=== PATIENT | female | born 1980 | race Caucasian/White ===

== ENCOUNTER 2019-02-11 09:15 | Emergency (ER) | payer BC ==
--- NOTE | 2019-02-11 09:24 | EDM.PDOC ---
ED HPI GENERAL MEDICAL PROBLEM - General Chief Complaint: Abdominal Pain Stated Complaint: STOMACH PAIN Time Seen by Provider: 02/11/19 09:23 Source of Information: Reports: Patient History Limitations: Reports: No Limitations - History of Present Illness INITIAL COMMENTS - FREE TEXT/NARRATIVE: Patient is a 38-year-old female complaining of epigastric upper abdominal pain and vomiting started 1 AM this morning is continued since. Denies any hematemesis or any diarrhea. Her abdominal pain feels moderate intensity is worse on the right upper quadrant does radiate to her back. Patient is 14 weeks and had an ultrasound earlier in the month of her which did show she had multiple gallstones. She denies any fever or chills any dysuria or bloody or tarry stools. She has taken nothing for her current symptoms. Not had similar symptoms in the past but has had trouble eating fried or fatty foods in the past. Onset: Today Duration: Chronic Location: Reports: Abdomen Quality: Reports: Ache, Burning. Denies: Stabbing Severity: Moderate Improves with: Reports: None Worsens with: Reports: Eating Associated Symptoms: Reports: No Other Symptoms RUQ Pain Score (Numeric/FACES): 6 - Related Data Allergies Allergy/AdvReac Type Severity Reaction Status Date / Time No Known Allergies Allergy Verified 02/11/19 09:25 Home Meds: Home Meds Levothyroxine 175 mcg PO DAILY 02/11/19 [History] ED ROS GENERAL - Review of Systems Review Of Systems: See Below Constitutional: Denies: Fever, Chills, Malaise Respiratory: Reports: No Symptoms Cardiovascular: Reports: No Symptoms GI/Abdominal: Reports: Abdominal Pain, Nausea, Vomiting. Denies: Diarrhea : Reports: No Symptoms Musculoskeletal: Reports: No Symptoms Skin: Reports: No Symptoms Neurological: Reports: No Symptoms Psychiatric: Reports: No Symptoms ED EXAM, GI/ABD - Physical Exam Exam: See Below Exam Limited By: No Limitations General Appearance: Alert, No Apparent Distress Course - Vital Signs Last Recorded V/S: Last Vital Signs Temp 36.6 C 02/11/19 09:23 Pulse 80 02/11/19 09:23 Resp 18 02/11/19 09:23 BP Pulse Ox 97 02/11/19 09:23 - Orders/Labs/Meds Orders: Active Orders 24 hr Category Date Time Status Sodium Chloride 0.9% [Saline Flush] Med 02/11/19 09:40 Active 10 ml FLUSH ASDIRECTED PRN Sodium Chloride 0.9% [Saline Flush] Med 02/11/19 09:40 Active 2.5 ml FLUSH ASDIRECTED PRN Sodium Chloride 0.9% [Saline Flush] Med 02/11/19 09:40 Active 2.5 ml FLUSH ASDIRECTED PRN Saline Lock Insert [OM.PC] Stat Oth 02/11/19 09:40 Ordered Medication Orders Sodium Chloride (Saline Flush) 2.5 ml FLUSH ASDIRECTED PRN PRN Reason: Keep Vein Open Last Admin: 02/11/19 10:01 Dose: 2.5 ml Sodium Chloride (Saline Flush) 10 ml FLUSH ASDIRECTED PRN PRN Reason: Keep Vein Open Last Admin: 02/11/19 10:01 Dose: 10 ml Sodium Chloride (Saline Flush) 2.5 ml FLUSH ASDIRECTED PRN PRN Reason: Keep Vein Open Last Admin: 02/11/19 10:01 Dose: 2.5 ml Labs: Laboratory Tests 02/11/19 02/11/19 02/11/19 Range/Units 09:26 10:03 10:03 WBC 10.10 (4.0-11.0) K/uL RBC 4.35 (4.30-5.90) M/uL Hgb 12.7 (12.0-16.0) g/dL Hct 38.0 (36.0-46.0) % MCV 87.4 (80.0-98.0) fL MCH 29.2 (27.0-32.0) pg MCHC 33.4 (31.0-37.0) g/dL RDW Std Deviation 47.7 (28.0-62.0) fl RDW Coeff of Tray 15 (11.0-15.0) % Plt Count 279 (150-400) K/uL MPV 10.20 (7.40-12.00) fL Neut % (Auto) 73.8 (48.0-80.0) % Lymph % (Auto) 20.7 (16.0-40.0) % [place] % (Auto) 4.3 (0.0-15.0) % Eos % (Auto) 0.9 (0.0-7.0) % Baso % (Auto) 0.3 (0.0-1.5) % Neut # (Auto) 7.5 H (1.4-5.7) K/uL Lymph # (Auto) 2.1 (0.6-2.4) K/uL [place] # (Auto) 0.4 (0.0-0.8) K/uL Eos # (Auto) 0.1 (0.0-0.7) K/uL Baso # (Auto) 0.0 (0.0-0.1) K/uL Nucleated RBC % 0.0 /100WBC Nucleated RBCs # 0 K/uL Sodium 136 (136-145) mmol/L Potassium 3.6 (3.5-5.1) mmol/L Chloride 105 (98-107) mmol/L Carbon Dioxide 20.2 L (21.0-32.0) mmol/L BUN 6 L (7.0-18.0) mg/dL Creatinine 0.6 (0.6-1.0) mg/dL Est Cr Clr Drug Dosing 100.55 mL/min Estimated GFR (MDRD) > 60.0 ml/min Glucose 107 H (74-106) mg/dL Calcium 8.2 L (8.5-10.1) mg/dL Total Bilirubin 0.2 (0.2-1.0) mg/dL AST 17 (15-37) IU/L ALT 30 (14-63) IU/L Alkaline Phosphatase 52 (46-116) U/L Total Protein 6.6 (6.4-8.2) g/dL Albumin 2.8 L (3.4-5.0) g/dL Globulin 3.8 (2.6-4.0) g/dL Albumin/Globulin Ratio 0.7 L (0.9-1.6) Lipase 101 (73-393) U/L Urine Color YELLOW Urine Appearance CLEAR Urine pH 6.0 (5.0-8.0) Ur Specific [place] 1.025 (1.001-1.035) Urine Protein NEGATIVE (NEGATIVE) mg/dL Urine Glucose (UA) NEGATIVE (NEGATIVE) mg/dL Urine Ketones NEGATIVE (NEGATIVE) mg/dL Urine Occult Blood MODERATE H (NEGATIVE) Urine Nitrite NEGATIVE (NEGATIVE) Urine Bilirubin NEGATIVE (NEGATIVE) Urine Urobilinogen 0.2 (<2.0) EU/dL Ur Leukocyte Esterase NEGATIVE (NEGATIVE) Urine RBC 1-2 (0-2/HPF) Urine WBC 0-1 (0-5/HPF) Ur Epithelial Cells FEW (NONE-FEW) Urine Bacteria RARE (NEGATIVE) Meds: Medications Generic Name Dose Route Start Last Admin Trade Name Freq PRN Reason Stop Dose Admin Sodium Chloride 2.5 ml 02/11/19 09:40 02/11/19 10:01 Saline Flush FLUSH 2.5 ml ASDIRECTED PRN Administration Keep Vein Open Sodium Chloride 10 ml 02/11/19 09:40 02/11/19 10:01 Saline Flush FLUSH 10 ml ASDIRECTED PRN Administration Keep Vein Open Sodium Chloride 2.5 ml 02/11/19 09:40 02/11/19 10:01 Saline Flush FLUSH 2.5 ml ASDIRECTED PRN Administration Keep Vein Open Discontinued Medications Generic Name Dose Route Start Last Admin Trade Name Freq PRN Reason Stop Dose Admin Sodium Chloride 1,000 mls @ 999 mls/hr 02/11/19 09:40 02/11/19 10:01 Normal Saline IV 02/11/19 10:40 999 mls/hr BOLUS ONE Administration Ondansetron HCl 4 mg 02/11/19 09:40 02/11/19 10:01 Zofran IVPUSH 02/11/19 09:41 4 mg ONETIME ONE Administration - Radiology Interpretation Free Text/Narrative:: Patient is feeling better at this time. Lab work is unremarkable. I have informed her this most likely is gallstone disease and she needs to follow-up with a surgeon for possible ERCP or cholecystectomy if symptoms continue or worsen. She also has given dietary recommendations of low-fat diet with small meals only. Departure - Departure Time of Disposition: 10:53 Disposition: Home, Self-Care 01 Condition: Good Clinical Impression: Cholelithiasis complicating in first trimester, antepartum - Discharge Information Instructions: Cholelithiasis Referrals: Pily May MD [Primary Care Provider] - Forms: ED Department Discharge Additional Instructions: Follow-up with surgeon for possible ERCP or cholecystectomy if symptoms continue return to ER anytime worse. Fat diet with small meals only. [place] if needed for pain. Care Plan Goals: The following information is given to patients seen in the emergency department who are being discharged to home. This information is to outline your options for follow-up care. We provide all patients seen in our emergency department with a follow-up referral. The need for follow-up, as well as the timing and circumstances, are variable depending upon the specifics of your emergency department visit. If you don't have a primary care physician on staff, we will provide you with a referral. We always advise you to contact your personal physician following an emergency department visit to inform them of the circumstance of the visit and for follow-up with them and/or the need for any referrals to a consulting specialist. The emergency department will also refer you to a specialist when appropriate. This referral assures that you have the opportunity for follow-up care with a specialist. All of these measure are taken in an effort to provide you with optimal care, which includes your follow-up. Under all circumstances we always encourage you to contact your private physician who remains a resource for coordinating your care. When calling for follow-up care, please make the office aware that this follow-up is from your recent emergency room visit. If for any reason you are refused follow-up, please contact the [facility] Emergency Department at and asked to speak to the emergency department charge nurse. Sepsis Event Note - Focused Exam Vital Signs: Vital Signs Temp Pulse Resp Pulse Ox 02/11/19 09:23 36.6 C 80 18 97 Date Exam was Performed: 02/11/19 Time Exam was Performed: 10:52 - My Orders Last 24 Hours: My Active Orders 02/11/19 09:40 Sodium Chloride 0.9% [Saline Flush] 10 ml FLUSH ASDIRECTED PRN Sodium Chloride 0.9% [Saline Flush] 2.5 ml FLUSH ASDIRECTED PRN Sodium Chloride 0.9% [Saline Flush] 2.5 ml FLUSH ASDIRECTED PRN Saline Lock Insert [OM.PC] Stat - Assessment/Plan Last 24 Hours: My Active Orders 02/11/19 09:40 Sodium Chloride 0.9% [Saline Flush] 10 ml FLUSH ASDIRECTED PRN Sodium Chloride 0.9% [Saline Flush] 2.5 ml FLUSH ASDIRECTED PRN Sodium Chloride 0.9% [Saline Flush] 2.5 ml FLUSH ASDIRECTED PRN Saline Lock Insert [OM.PC] Stat
[2019-02-11] MEDS ORDERED: Sodium Chloride 0.9% 1,000 ML IV ONE (09:40)
[2019-02-11] MEDS ORDERED: Ondansetron 4 MG/2 ML SDV IVPUSH ONE (09:40)
[2019-02-11] MEDS ORDERED: Sodium Chloride 0.9% 10 ML Syringe FLUSH PRN (09:40)
[2019-02-11] MEDS ORDERED: Sodium Chloride 0.9% 2.5 ML Syringe FLUSH PRN ×2 (09:40)
[2019-02-11 10:31] LABS: BLOOD UREA NITROGEN,BUN 6 mg/dL (7.0-18.0); CARBON DIOXIDE,CO2 20.2 mmol/L (21.0-32.0); CHLORIDE,CL 105 mmol/L (98-107); GLUCOSE RANDOM 107 mg/dL (74-106); LIPASE 101 U/L (73-393); POTASSIUM,K 3.6 mmol/L (3.5-5.1); SODIUM,NA 136 mmol/L (136-145)
== END 2019-02-11 11:08 | disposition home or self-care (01) ==
LOC: MW.ED 09:15
DX: O99.612 Diseases of the digestive system complicating pregnancy, second trimester (principal); K80.20 Calculus of gallbladder without cholecystitis without obstruction; Z3A.14 14 weeks gestation of pregnancy
CPT/HCPCS: 36415; 80053; 81001; 83690; 85025; 96361; 96374; 99284; J2405; J7030; 99283

== ENCOUNTER 2019-02-23 10:52 | Emergency (ER) | payer OTHER ==
[2019-02-23] MEDS ORDERED: Ondansetron 4 MG Tab.DIS PO ONE (11:54)
[2019-02-23] MEDS ORDERED: Acetaminophen 325 MG Tab PO ONE (11:54)
[2019-02-23 12:22] LABS: BLOOD UREA NITROGEN,BUN 5 mg/dL (7.0-18.0); CARBON DIOXIDE,CO2 24.1 mmol/L (21.0-32.0); CHLORIDE,CL 102 mmol/L (98-107); GLUCOSE RANDOM 107 mg/dL (74-106); LIPASE 84 U/L (73-393); POTASSIUM,K 3.5 mmol/L (3.5-5.1); SODIUM,NA 136 mmol/L (136-145)
--- NOTE | 2019-02-23 13:54 | MR ---
INDICATION: ELEVATED LFTS , 16 WEEKS KNOWN CHOLELITHIASISPATIENT IS IN THE ER Indication: Elevated liver transaminases. Technique: Three plane localizer, coronal T2 weighted, axial SSFP, high-resolution, heavily T2 weighted 2D/3D MRCP images, axial T2 weighted with fat suppression, axial T1 weighted in and out of phase, axial diffusion-weighted imaging with ADC map. No intravenous gadolinium administered. Comparison: Ultrasound of the abdomen limited 02/22/2019. Findings: There is a filling defect in the common bile duct, compatible with choledocholithiasis. This is seen well on image 65 of series 401. The common bile duct measures up to 6 millimeters. The filling defect measures 4 mm in craniocaudad dimension. Cholelithiasis. No inflammatory changes. Non cirrhotic liver morphology. No loss of signal intensity in the liver on opposed phase imaging to indicate hepatic steatosis. The included segments of the pancreas, adrenal glands, and spleen are normal. No pleural or pericardial effusion. No abdominal lymphadenopathy. Marrow signal intensity within the included axial skeleton is normal. Included loops of small bowel and colon are normal. Partially visualized gravid uterus. This is not included on the [id number] entirely, and is not intended for assessment of anatomy. The placenta appears anterior. Impression: 1. Choledocholithiasis. This is well demonstrated on series 401, image 65. 2. Cholelithiasis, without associated inflammatory changes. 3. GI consultation is suggested for these findings. 4. Report called to the emergency room provider, 02/23/2019, 1349 hours. Dictated by Sinan Pascal MD @ 02/23/2019 1:52:22 PM Dictated by: Sinan Pascal MD @ 02/23/2019 13:52:33 (Electronically Signed)
--- NOTE | 2019-02-23 15:00 | EDM.PDOC ---
ED [facility] GENERAL MEDICAL PROBLEM - General Chief Complaint: Abdominal Pain Stated Complaint: STOMACH PAIN Time Seen by Provider: 02/23/19 12:00 Source of Information: Reports: Patient, Provider History Limitations: Reports: No Limitations - History of Present Illness INITIAL COMMENTS - FREE TEXT/NARRATIVE: Patient is a 30-year-old female that is approximately 16 weeks presenting with a chief complaint of abdominal pain and vomiting. The pain is located in the right upper quadrant and suddenly worsened last night. Pain has no cholelithiasis and was evaluated by Dr. Wilcox yesterday was found to have transaminitis with a normal bilirubin as well as a normal ultrasound. However overnight her pain worsened and she vomited several times. Patient denies any fevers, chills, difficulty breathing. Patient denies any itching or skin changes. In addition to that documented in the HPI above, the additional ROS was obtained : Constitutional: Denies fevers or chills Eyes: Denies vision changes ENMT: Denies sore throat CV: Denies chest pain Resp: Denies SOB GI: Per HPI : Denies painful urination MSK: Denies recent trauma Skin: Denies new rashes Neuro: Denies new numbness or tingling or weakness Endocrine: Denies unexpected weight loss Heme: Denies bleeding disorders I have reviewed the triage vital signs Const: Well nourished, well developed, appears stated age Eyes: PERRL, no conjunctival injection HENT: NCAT, Neck supple without meningismus CV: RRR, Warm, well-perfused extremities RESP: CTAB, Unlabored respiratory effort GI: Tender palpation of the right upper quadrant with positive Qureshi sign. Soft abdomen, non-distended, no masses MSK: No gross deformities appreciated Skin: Warm, dry. 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 Sensation and motor function of extremities grossly intact. Psych: Appropriate mood and affect Assessment and plan Patient is a 38-year-old female that is 16-week failed to have a common bile duct stone on MRCP. Patient does not have evidence of cholecystitis but her liver enzymes are up-trending. Patient will require transfer for GI evaluation and ERCP. Since these services are not available at this hospital, transfer will be arranged to [facility]. 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: Musculoskeletal History: Reports: None Neurological History: Reports: None Psychiatric History: Reports: None Endocrine/Metabolic History: Reports: Diabetes, Gestational, Hypothyroidism Hematologic History: Reports: None Immunologic History: Reports: None Oncologic (Cancer) History: Reports: None Dermatologic History: Reports: None - Infectious Disease History Infectious Disease History: Reports: Chicken Pox - Past Surgical History Head Surgeries/Procedures: Reports: None HEENT Surgical History: Reports: None Cardiovascular Surgical History: Reports: None Respiratory Surgical History: Reports: None GI Surgical History: Reports: None Female Surgical History: Reports: None Endocrine Surgical History: Reports: None Neurological Surgical History: Reports: None Musculoskeletal Surgical History: Reports: None Oncologic Surgical History: Reports: None Dermatological Surgical History: Reports: None Social & Family History - Family History Family Medical History: Noncontributory - Tobacco Use Smoking Status *Q: Never Smoker - Caffeine Use Caffeine Use: Reports: None - Recreational Drug Use Recreational Drug Use: No ED ROS GENERAL - Review of Systems Review Of Systems: See Below ED EXAM, GI/ABD - Physical Exam Exam: See Below Course - Vital Signs Last Recorded V/S: Last Vital Signs Temp 36.6 C 02/23/19 11:19 Pulse 72 02/23/19 13:18 Resp 18 02/23/19 12:16 BP 115/92 H 02/23/19 13:18 Pulse Ox 98 02/23/19 13:18 - Orders/Labs/Meds Labs: Laboratory Tests 02/23/19 02/23/19 Range/Units 11:38 11:38 WBC 8.72 (4.0-11.0) K/uL RBC 4.39 (4.30-5.90) M/uL Hgb 12.9 (12.0-16.0) g/dL Hct 39.0 (36.0-46.0) % MCV 88.8 (80.0-98.0) fL MCH 29.4 (27.0-32.0) pg MCHC 33.1 (31.0-37.0) g/dL RDW Std Deviation 49.4 (28.0-62.0) fl RDW Coeff of Tray 15 (11.0-15.0) % Plt Count 273 (150-400) K/uL MPV 10.70 (7.40-12.00) fL Neut % (Auto) 73.2 (48.0-80.0) % Lymph % (Auto) 20.9 (16.0-40.0) % [place] % (Auto) 4.2 (0.0-15.0) % Eos % (Auto) 1.4 (0.0-7.0) % Baso % (Auto) 0.3 (0.0-1.5) % Neut # (Auto) 6.4 H (1.4-5.7) K/uL Lymph # (Auto) 1.8 (0.6-2.4) K/uL [place] # (Auto) 0.4 (0.0-0.8) K/uL Eos # (Auto) 0.1 (0.0-0.7) K/uL Baso # (Auto) 0.0 (0.0-0.1) K/uL Nucleated RBC % 0.0 /100WBC Nucleated RBCs # 0 K/uL Sodium 136 (136-145) mmol/L Potassium 3.5 (3.5-5.1) mmol/L Chloride 102 (98-107) mmol/L Carbon Dioxide 24.1 (21.0-32.0) mmol/L BUN 5 L (7.0-18.0) mg/dL Creatinine 0.6 (0.6-1.0) mg/dL Est Cr Clr Drug Dosing TNP Estimated GFR (MDRD) > 60.0 ml/min Glucose 107 H (74-106) mg/dL Calcium 8.5 (8.5-10.1) mg/dL Total Bilirubin 0.7 (0.2-1.0) mg/dL AST 392 H (15-37) IU/L ALT 609 H (14-63) IU/L Alkaline Phosphatase 196 H (46-116) U/L Total Protein 6.8 (6.4-8.2) g/dL Albumin 2.8 L (3.4-5.0) g/dL Globulin 4.0 (2.6-4.0) g/dL Albumin/Globulin Ratio 0.7 L (0.9-1.6) Lipase 84 (73-393) U/L Meds: Medications Discontinued Medications Generic Name Dose Route Start Last Admin Trade Name Freq PRN Reason Stop Dose Admin Acetaminophen 650 mg 02/23/19 11:54 02/23/19 12:15 Tylenol PO 02/23/19 11:55 650 mg NOW ONE Administration Ondansetron HCl 4 mg 02/23/19 11:54 02/23/19 12:15 Zofran Odt PO 02/23/19 11:55 4 mg ONETIME ONE Administration Departure - Departure Time of Disposition: 15:00 Disposition: DC/Tfer to Other 70 Clinical Impression: Choledocholithiasis - Discharge Information Referrals: Pily May MD [Primary Care Provider] - Sepsis Event Note - Evaluation Sepsis Screening Result: No Definite Risk - Focused Exam Vital Signs: Vital Signs Temp Pulse Resp BP Pulse Ox 02/23/19 13:18 72 115/92 H 98 02/23/19 12:16 78 18 96 02/23/19 11:19 36.6 C 79 20 123/72 95 Date Exam was Performed: 02/23/19 Time Exam was Performed: 14:54
--- NOTE | 2019-02-23 15:33 | PCM.CONS ---
H&P History of Present Illness - General Date of Service: 02/23/19 Admit Problem/Dx: RUQ abdominal pain Source of Information: Patient History Limitations: Reports: No Limitations - History of Present Illness Initial Comments - Free Text/Narative: Patient is a 38 year old female who presents with severe RUQ pain. She is 16 weeks and has know cholelithiasis. She was seen at [place] in the ER for RUQ pain. Labs were normal. Since then she has had ongoing RUQ pain that radiates to her epigastric area. It is made worse with any po intake. She saw me in clinic yesterday. Her physical exam was unremarkable. Her LFTs were all elevated but her bilirubin was normal. Repeat US showed cholelithiasis with no evidence of cholecystitis and her common bile duct was normal size. She was scheduled for an outpatient MRCP. This morning she developed 10/10 pain starting at 1 am. She was advised to go to the ER. 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: Musculoskeletal History: Reports: None Neurological History: Reports: None Psychiatric History: Reports: None Endocrine/Metabolic History: Reports: Diabetes, Gestational, Hypothyroidism Hematologic History: Reports: None Immunologic History: Reports: None Oncologic (Cancer) History: Reports: None Dermatologic History: Reports: None - Infectious Disease History Infectious Disease History: Reports: Chicken Pox - Past Surgical History Head Surgeries/Procedures: Reports: None HEENT Surgical History: Reports: None Cardiovascular Surgical History: Reports: None Respiratory Surgical History: Reports: None GI Surgical History: Reports: None Female Surgical History: Reports: None Endocrine Surgical History: Reports: None Neurological Surgical History: Reports: None Musculoskeletal Surgical History: Reports: None Oncologic Surgical History: Reports: None Dermatological Surgical History: Reports: None Social & Family History - Family History Family Medical History: Noncontributory - Tobacco Use Smoking Status *Q: Never Smoker - Caffeine Use Caffeine Use: Reports: None - Recreational Drug Use Recreational Drug Use: No H&P Review of Systems - Review of Systems: Review Of Systems: Comprehensive ROS is negative, except as noted in HPI. Exam - Exam Exam: See Below - Vital Signs Vital Signs: Last Vital Signs Temp 36.3 C 02/23/19 15:13 Pulse 61 02/23/19 15:13 Resp 16 02/23/19 15:13 BP 107/64 02/23/19 15:13 Pulse Ox 97 02/23/19 15:13 - Exam General: Alert, Oriented, Cooperative, Moderate Distress HEENT: Conjunctiva Clear, Mucosa Moist & Braxton, Posterior Pharynx Clear Neck: Trachea Midline Lungs: Normal Respiratory Effort Cardiovascular: Regular Rate GI/Abdominal Exam: Soft, Non-Tender, No Distention, No Mass Back Exam: Normal Inspection, Full Range of Motion Extremities: Normal Inspection - Patient Data Lab Results Last 24 hrs: Laboratory Results - last 24 hr 02/23/19 02/23/19 Range/Units 11:38 11:38 WBC 8.72 (4.0-11.0) K/uL RBC 4.39 (4.30-5.90) M/uL Hgb 12.9 (12.0-16.0) g/dL Hct 39.0 (36.0-46.0) % MCV 88.8 (80.0-98.0) fL MCH 29.4 (27.0-32.0) pg MCHC 33.1 (31.0-37.0) g/dL RDW Std Deviation 49.4 (28.0-62.0) fl RDW Coeff of Tray 15 (11.0-15.0) % Plt Count 273 (150-400) K/uL MPV 10.70 (7.40-12.00) fL Neut % (Auto) 73.2 (48.0-80.0) % Lymph % (Auto) 20.9 (16.0-40.0) % [place] % (Auto) 4.2 (0.0-15.0) % Eos % (Auto) 1.4 (0.0-7.0) % Baso % (Auto) 0.3 (0.0-1.5) % Neut # (Auto) 6.4 H (1.4-5.7) K/uL Lymph # (Auto) 1.8 (0.6-2.4) K/uL [place] # (Auto) 0.4 (0.0-0.8) K/uL Eos # (Auto) 0.1 (0.0-0.7) K/uL Baso # (Auto) 0.0 (0.0-0.1) K/uL Nucleated RBC % 0.0 /100WBC Nucleated RBCs # 0 K/uL Sodium 136 (136-145) mmol/L Potassium 3.5 (3.5-5.1) mmol/L Chloride 102 (98-107) mmol/L Carbon Dioxide 24.1 (21.0-32.0) mmol/L BUN 5 L (7.0-18.0) mg/dL Creatinine 0.6 (0.6-1.0) mg/dL Est Cr Clr Drug Dosing TNP Estimated GFR (MDRD) > 60.0 ml/min Glucose 107 H (74-106) mg/dL Calcium 8.5 (8.5-10.1) mg/dL Total Bilirubin 0.7 (0.2-1.0) mg/dL AST 392 H (15-37) IU/L ALT 609 H (14-63) IU/L Alkaline Phosphatase 196 H (46-116) U/L Total Protein 6.8 (6.4-8.2) g/dL Albumin 2.8 L (3.4-5.0) g/dL Globulin 4.0 (2.6-4.0) g/dL Albumin/Globulin Ratio 0.7 L (0.9-1.6) Lipase 84 (73-393) U/L Result Diagrams: 02/23/19 11:38 02/23/19 11:38 Sepsis Event Note - Evaluation Sepsis Screening Result: No Definite Risk - Focused Exam Vital Signs: Vital Signs Temp Pulse Resp BP Pulse Ox 02/23/19 15:13 36.3 C 61 16 107/64 97 02/23/19 13:18 72 115/92 H 98 02/23/19 12:16 78 18 96 02/23/19 11:19 36.6 C 79 20 123/72 95 Date Exam was Performed: 02/23/19 Time Exam was Performed: 16:00 Consult PN Assessment/Plan Procedures: Procedures ASSAY OF FREE THYROXINE (01/11/19) ASSAY OF LIPASE (02/11/19) ASSAY THYROID STIM HORMONE (01/11/19) COMPLETE CBC W/AUTO DIFF WBC (02/11/19) COMPREHEN METABOLIC PANEL (02/11/19) EMERGENCY DEPT VISIT (02/11/19) GLUCOSE TEST (01/11/19) HYDRATE IV INFUSION ADD-ON (02/11/19) ROUTINE VENIPUNCTURE (02/11/19) THER/PROPH/DIAG INJ IV PUSH (02/11/19) URINALYSIS AUTO W/SCOPE (02/11/19) URINE CULTURE/COLONY COUNT (01/07/19) (1) Choledocholithiasis SNOMED Code(s): 867782366 Code(s): K80.50 - CALCULUS OF BILE DUCT W/O CHOLANGITIS OR CHOLECYST W/O OBST Current Visit: Yes Problem List Initiated/Reviewed/Updated: Yes Plan: Labs were rechecked today. Her LFTs were all higher and although her bilirubin was within normal limits it was elevated from what it was yesterday. An abdominal MR without contrast was performed that showed choledocholithiasis. She will be transferred to a facility with greater resources given that she is and has this new finding. The ER doctor talked to Jacques who recommended transfer to [place].
[2019-02-23] MEDS ORDERED: Sodium Chloride 0.9% 1,000 ML IV SCH (16:45)
== END 2019-02-23 17:40 | disposition other institution (70) ==
LOC: MW.ED 10:52
DX: O99.612 Diseases of the digestive system complicating pregnancy, second trimester (principal); K80.50 Calculus of bile duct without cholangitis or cholecystitis without obstruction; O09.522 Supervision of elderly multigravida, second trimester; O99.282 Endocrine, nutritional and metabolic diseases complicating pregnancy, second trimester; E03.9 Hypothyroidism, unspecified; Z3A.16 16 weeks gestation of pregnancy
CPT/HCPCS: 36415; 74181; 80053; 83690; 85025; 96360; 99285; A9270; J7030; 99283

== ENCOUNTER 2019-07-26 05:06 | Inpatient (IN) | payer MEDICAID ==
[2019-07-26] MEDS ORDERED: Nalbuphine 10 MG/1 ML Vial IVPUSH PRN (05:33)
[2019-07-26] MEDS ORDERED: Water For Irrigation,Sterile 1,000 ML Container IRR PRN (05:33)
[2019-07-26] MEDS ORDERED: Butorphanol 1 MG/ML SDV IVPUSH PRN (05:33)
[2019-07-26] MEDS ORDERED: Misoprostol 200 MCG Tab PO PRN (05:33)
[2019-07-26] MEDS ORDERED: Sodium Chloride 0.9% 10 ML SDV IV PRN (05:33)
[2019-07-26] MEDS ORDERED: Sodium Chloride 0.9% 10 ML Syringe FLUSH PRN (05:33)
[2019-07-26] MEDS ORDERED: Carboprost Tromethamine 250 MCG/1 ML Amp IM PRN (05:33)
[2019-07-26] MEDS ORDERED: Lidocaine 1% 50 ML MDV INJECT PRN (05:33)
[2019-07-26] MEDS ORDERED: Methylergonovine 0.2 MG/1 ML Amp IM PRN (05:33)
[2019-07-26] MEDS ORDERED: Tranexamic Acid 1,000 MG in Sodium Chloride 0.9% 100 ML IV PRN ×2 (05:33→12:45)
[2019-07-26] MEDS ORDERED: Sodium Chloride 0.9% 2.5 ML Syringe FLUSH PRN (05:33)
[2019-07-26] MEDS ORDERED: Oxytocin/0.9 % Sodium Chloride 30 UNIT/500 ML BAG IV SCH ×2 (05:45→06:00)
[2019-07-26] MEDS: Lactated Ringers 1,000 ML IV SCH ×2 (05:52→10:45)
[2019-07-26] MEDS ORDERED: Terbutaline 1 MG/ML SDV SUBCUT PRN (05:53)
[2019-07-26] MEDS ORDERED: Lanolin 100% Cream 7 GM Tube TOP PRN (12:45)
[2019-07-26] MEDS ORDERED: Bisacodyl 10 MG Supp RECTAL PRN (12:45)
[2019-07-26] MEDS ORDERED: Acetaminophen 500 MG Tab PO PRN ×2 (12:45)
[2019-07-26] MEDS ORDERED: oxyCODONE 5 MG Tab PO PRN (12:45)
[2019-07-26] MEDS ORDERED: Docusate Sodium 100 MG Cap PO PRN (12:45)
[2019-07-26] MEDS ORDERED: Ibuprofen 800 MG Tab PO PRN (12:45)
[2019-07-26] MEDS ORDERED: Benzocaine/Menthol 20%-0.5% Spray 78 GM Cannister TOP PRN (12:45)
[2019-07-26] MEDS ORDERED: Witch Hazel Medicated Pads 40/Jar TOP PRN (12:45)
[2019-07-26] MEDS ORDERED: Ibuprofen 400 MG Tab PO PRN (12:45)
--- NOTE | 2019-07-26 12:45 | PCM.DEL ---
L & D Note - General Info Date of Service: 07/26/19 Mother's Due Date: 08/13/19 - Delivery Note Labor: Induced by Oxytocin Delivery Outcome: Livebirth Infant Delivery Method: Spontaneous Vaginal Delivery-Single Presentation: Left Occiput Anterior (CALEB) Nuchal Cord: None Prep: Other Anesthesia Type: None Amniotic Fluid Description: Clear Episiotomy Type: None Laceration: None Placenta: Intact, Spontaneous Cord: 2 Vessels Estimated Blood Loss: 200 Resuscitation Needed: No : Suctioned Score 1 min: 8 Score 5 min: 9 Delivery Comments (Free Text/Narrative):: Liveborn male 8/9 weigth 2910 grams, placenta spontaneous, Schultze, intact with 2 vessels, perineum intact. - General Info Date of Service: 07/26/19 - Patient Data Weight - Most Recent: 92.079 kg Lab Results Last 24 Hours: Laboratory Results - last 24 hr 07/26/19 07/26/19 07/26/19 Range/Units 05:20 05:20 06:42 WBC 11.50 H (4.0-11.0) K/uL RBC 4.24 L (4.30-5.90) M/uL Hgb 12.0 (12.0-16.0) g/dL Hct 37.1 (36.0-46.0) % MCV 87.5 (80.0-98.0) fL MCH 28.3 (27.0-32.0) pg MCHC 32.3 (31.0-37.0) g/dL RDW Std Deviation 47.7 (28.0-62.0) fl RDW Coeff of Tray 15 (11.0-15.0) % Plt Count 273 (150-400) K/uL MPV 12.10 H (7.40-12.00) fL Nucleated RBC % 0.0 /100WBC Nucleated RBCs # 0 K/uL POC Glucose 96 (60-110) mg/dL Blood Type O POSITIVE Antibody Screen NEGATIVE 07/26/19 07/26/19 Range/Units 08:54 11:35 WBC (4.0-11.0) K/uL RBC (4.30-5.90) M/uL Hgb (12.0-16.0) g/dL Hct (36.0-46.0) % MCV (80.0-98.0) fL MCH (27.0-32.0) pg MCHC (31.0-37.0) g/dL RDW Std Deviation (28.0-62.0) fl RDW Coeff of Tray (11.0-15.0) % Plt Count (150-400) K/uL MPV (7.40-12.00) fL Nucleated RBC % /100WBC Nucleated RBCs # K/uL POC Glucose 90 92 (60-110) mg/dL Blood Type Antibody Screen Med Orders - Current: Current Medications Butorphanol Tartrate (Stadol) 1 mg IVPUSH Q1H PRN PRN Reason: Pain Last Admin: 07/26/19 11:26 Dose: 1 mg Carboprost Tromethamine (Hemabate Ds) 250 mcg IM ASDIRECTED PRN PRN Reason: Post Hemorrhage Lactated Ringer's (Ringers, Lactated) 1,000 mls @ 150 mls/hr IV ASDIRECTED SAIRA Last Admin: 07/26/19 10:45 Dose: 500 mls/hr Oxytocin/Sodium Chloride (Oxytocin 30 Unit/500 Ml-Ns) 30 unit in 500 mls @ 500 mls/hr IV TITRATE SAIRA Last Admin: 07/26/19 12:05 Dose: 500 mls/hr Tranexamic Acid 1,000 mg/ (Sodium Chloride) 110 mls @ 660 mls/hr IV ONETIME PRN PRN Reason: Bleeding Oxytocin/Sodium Chloride (Oxytocin 30 Unit/500 Ml-Ns) 30 unit in 500 mls @ 2 mls/hr IV TITRATE [facility]; Protocol Last Titration: 07/26/19 10:22 Dose: 0 munits/min, 0 mls/hr Lidocaine HCl (Xylocaine 1%) 50 ml INJECT ONETIME PRN PRN Reason: Laceration repair Methylergonovine Maleate (Methergine) 0.2 mg IM ASDIRECTED PRN PRN Reason: Post Hemorrhage Misoprostol (Cytotec) 200 mcg PO ONETIME PRN PRN Reason: Post Hemorrhage Nalbuphine HCl (Nubain) 10 mg IVPUSH Q1H PRN PRN Reason: Pain (severe 7-10) Sodium Chloride (Saline Flush) 10 ml FLUSH ASDIRECTED PRN PRN Reason: Keep Vein Open Sodium Chloride (Saline Flush) 2.5 ml FLUSH ASDIRECTED PRN PRN Reason: Keep Vein Open Sodium Chloride (Normal Saline) 10 ml IV ASDIRECTED PRN PRN Reason: IV Use Sterile Water (Sterile Water For Irrigation) 1,000 ml IRR ASDIRECTED PRN PRN Reason: delivery Terbutaline Sulfate (Brethine) 0.25 mg SUBCUT ASDIRECTED PRN PRN Reason: Tacysystole - Problem List & Annotations (1) Gestational diabetes mellitus (GDM) requiring insulin SNOMED Code(s): 18970997, 836939095 Code(s): O24.414 - GESTATIONAL DIABETES IN , INSULIN CONTROLLED Status: Acute Current Visit: Yes (2) Gestational hypertension SNOMED Code(s): 616656004 Code(s): O13.9 - GESTATIONAL HTN W/O SIGNIFICANT PROTEINURIA, UNSP TRIMESTER Status: Acute Current Visit: Yes (3) Single umbilical artery SNOMED Code(s): 998612719 Code(s): Q27.0 - CONGENITAL ABSENCE AND HYPOPLASIA OF UMBILICAL ARTERY Status: Acute Current Visit: Yes - Problem List Review Problem List Initiated/Reviewed/Updated: Yes - My Orders Last 24 Hours: My Active Orders 07/26/19 05:20 RPR (SYPHILIS SERO) W/ RFLX [REF] Routine 07/26/19 05:33 Patient Status [ADT] Routine Heart Tones [RC] CONTINUOUS Non Stress Test [RC] PER UNIT ROUTINE May Shower [RC] ASDIRECTED Notify Provider [RC] PRN Up ad Lori [RC] ASDIRECTED Vaginal Exam [RC] PRN Vital Signs [RC] PER UNIT ROUTINE Butorphanol [Stadol] 1 mg IVPUSH Q1H PRN Carboprost Tromethamine [Hemabate DS] 250 mcg IM ASDIRECTED PRN Lidocaine 1% [Xylocaine 1%] 50 ml INJECT ONETIME PRN Methylergonovine [Methergine] 0.2 mg IM ASDIRECTED PRN Nalbuphine [Nubain] 10 mg IVPUSH Q1H PRN Sodium Chloride 0.9% [Normal Saline] 10 ml IV ASDIRECTED PRN Sodium Chloride 0.9% [Saline Flush] 10 ml FLUSH ASDIRECTED PRN Sodium Chloride 0.9% [Saline Flush] 2.5 ml FLUSH ASDIRECTED PRN Tranexamic Acid [Cyklokapron] 1,000 mg Sodium Chloride 0.9% [Normal Saline] 100 ml IV ONETIME Water For Irrigation,Sterile [Sterile Water for Irrigation] 1,000 ml IRR ASDIRECTED PRN miSOPROStoL [Cytotec] 200 mcg PO ONETIME PRN Scalp Electrode [WOMSER] Per Unit Routine Peripheral IV Insertion Adult [OM.PC] Routine Resuscitation Status Routine 07/26/19 05:45 Lactated Ringers [Ringers, Lactated] 1,000 ml IV ASDIRECTED Oxytocin/0.9 % Sodium Chloride [Oxytocin 30 Unit/500 ML-NS] 30 unit in 500 ml IV TITRATE 07/26/19 05:53 Bedrest Bathroom Privileges [RC] ASDIRECTED Communication Order [RC] ASDIRECTED Communication Order [RC] ASDIRECTED Notify Provider [RC] PRN Terbutaline [Brethine] 0.25 mg SUBCUT ASDIRECTED PRN 07/26/19 06:00 Oxytocin/0.9 % Sodium Chloride [Oxytocin 30 Unit/500 ML-NS] 30 unit in 500 ml IV TITRATE 07/26/19 Breakfast Clear Liquid Diet [DIET]
--- NOTE | 2019-07-26 13:40 | OR ---
SURGEON: Zenaida Mccall M.D. DATE OF PROCEDURE: 07/26/2019 PREOPERATIVE DIAGNOSES: A 38-3/7 weeks' intrauterine , gestational diabetes type A2, gestational hypertension, single umbilical artery, polyhydramnios. DIAGNOSES: A 38-3/7 weeks' intrauterine , gestational diabetes type A2, gestational hypertension, single umbilical artery, polyhydramnios. PROCEDURE: Pitocin induction of labor, term spontaneous vaginal delivery. PRIMARY SURGEON: Zenaida Mccall MD ANESTHESIA: None. ESTIMATED BLOOD LOSS: 200 mL. FINDINGS: Liveborn male, score of 8 and 9, weighing 2910 g. Placenta spontaneous, Schultze intact with two-vessel cord. Perineum intact. COMPLICATIONS: None known. DISPOSITION: Mother and baby are in Recovery in good condition. BRIEF HISTORY: This is a 38-year-old female who presents for induction of labor. She has gestational diabetes. She has been using NPH in the evenings, but has persistently elevated fastings. Additionally, at her most recent visit, she had elevated blood pressures. She has a single umbilical artery with no other anomalies identified. However, polyhydramnios was present during the . She has been followed with serial biophysical profiles. Due to the gestational diabetes and elevated blood pressure, decision was made to proceed with induction of labor at 38-3/7 weeks' gestation. HOSPITAL COURSE: The patient was admitted. She had category 1 heart tones. She had normal blood pressures during the admission. She had normal blood sugars during the admission. She was started on Pitocin, and when she was 3 cm dilated, had artificial rupture of membranes performed. Pitocin was at a max of 8 milliunits/minute and it was decreased due to variable decelerations. Over the following 2 hours, the patient progressed to complete. DESCRIPTION OF PROCEDURE: With the patient in the dorsal lithotomy position, the anterior cervix was reduced as the patient was feeling extreme urge to push, and she pushed over 1 contraction to a 5+ station, at which time, the head was delivered spontaneously and atraumatically over the perineum with support with subsequent delivery of the infant's shoulders and body without any difficulty. The was bulb suctioned by nose and mouth. The was handed to the mother in the presence of the nurse attending delivery. The was a liveborn male, score of 8 and 9, weighing 2910 g. After the cord had ceased to pulsate, it was doubly clamped and cut. Cord blood was collected for cord ABGs as well as routine cord blood sampling. Pitocin was initiated after delivery of the infant to assist with delivery of the placenta, which was delivered spontaneously, Schultze intact with two vessels. Upon inspection of the pelvis and perineum, there were no periurethral, vaginal sidewall, cervical, rectal, or perineal lacerations. EBL was less than 200 mL. There were no known complications. Mother and baby remained in Recovery in good condition. MATT / RADHA /[id number]
[2019-07-27 06:16] LABS: BLOOD UREA NITROGEN,BUN 14 mg/dL (7.0-18.0); CARBON DIOXIDE,CO2 21.7 mmol/L (21.0-32.0); CHLORIDE,CL 104 mmol/L (98-107); GLUCOSE RANDOM 91 mg/dL (74-106); SODIUM,NA 138 mmol/L (136-145)
--- NOTE | 2019-07-27 10:42 | PCM.PNPP ---
- General Info Date of Service: 07/27/19 Functional Status: Reports: Pain Controlled, Tolerating Diet, Ambulating, Urinating - Review of Systems General: Reports: No Symptoms HEENT: Reports: No Symptoms Pulmonary: Reports: No Symptoms Cardiovascular: Reports: No Symptoms Gastrointestinal: Reports: No Symptoms Genitourinary: Reports: No Symptoms Musculoskeletal: Reports: No Symptoms Skin: Reports: No Symptoms Neurological: Reports: No Symptoms Psychiatric: Reports: No Symptoms - General Info Date of Service: 07/27/19 - Patient Data Vital Signs - Most Recent: Last Vital Signs Temp 36.5 C 07/27/19 09:17 Pulse 71 07/27/19 09:17 Resp 16 07/27/19 09:17 BP 117/74 07/27/19 09:17 Pulse Ox 97 07/27/19 09:17 Weight - Most Recent: 92.079 kg Lab Results - Last 24 Hours: Laboratory Results - last 24 hr 07/26/19 07/26/19 07/27/19 Range/Units 11:35 12:25 05:32 Hgb 10.9 L (12.0-16.0) g/dL Hct 34.3 L (36.0-46.0) % Cord ABG pH 7.242 (7.18-7.38) Cord ABG Base Excess -4 (-10--2) Cord VBG pH 7.361 (7.25-7.45) Cord VBG Base Excess -5 (-10--2) Sodium (136-145) mmol/L Potassium (3.5-5.1) mmol/L Chloride (98-107) mmol/L Carbon Dioxide (21.0-32.0) mmol/L BUN (7.0-18.0) mg/dL Creatinine (0.6-1.0) mg/dL Est Cr Clr Drug Dosing mL/min Estimated GFR (MDRD) ml/min Glucose (74-106) mg/dL POC Glucose 92 (60-110) mg/dL Calcium (8.5-10.1) mg/dL 07/27/19 Range/Units 05:32 Hgb (12.0-16.0) g/dL Hct (36.0-46.0) % Cord ABG pH (7.18-7.38) Cord ABG Base Excess (-10--2) Cord VBG pH (7.25-7.45) Cord VBG Base Excess (-10--2) Sodium 138 (136-145) mmol/L Potassium 4.0 (3.5-5.1) mmol/L Chloride 104 (98-107) mmol/L Carbon Dioxide 21.7 (21.0-32.0) mmol/L BUN 14 (7.0-18.0) mg/dL Creatinine 0.8 (0.6-1.0) mg/dL Est Cr Clr Drug Dosing 75.41 mL/min Estimated GFR (MDRD) > 60.0 ml/min Glucose 91 (74-106) mg/dL POC Glucose (60-110) mg/dL Calcium 8.3 L (8.5-10.1) mg/dL Med Orders - Current: Current Medications Acetaminophen (Tylenol Extra Strength) 500 mg PO Q4H PRN PRN Reason: Pain Acetaminophen (Tylenol Extra Strength) 1,000 mg PO Q4H PRN PRN Reason: Pain Last Admin: 07/26/19 22:03 Dose: 1,000 mg Benzocaine/Menthol (Dermoplast Pain Relief 20%-0.5% Hiko) 78 gm TOP ASDIRECTED PRN PRN Reason: Perineal Comfort Measure Bisacodyl (Dulcolax) 10 mg RECTAL ONETIME PRN PRN Reason: Constipation Docusate Sodium (Colace) 100 mg PO BID PRN PRN Reason: Constipation Emollient Ointment (Lansinoh Hpa) 0 gm TOP ASDIRECTED PRN PRN Reason: Sore Nipples Tranexamic Acid 1,000 mg/ (Sodium Chloride) 110 mls @ 660 mls/hr IV ONETIME PRN PRN Reason: Bleeding Ibuprofen (Motrin) 400 mg PO Q4H PRN PRN Reason: Pain Ibuprofen (Motrin) 800 mg PO Q6H PRN PRN Reason: Pain Last Admin: 07/27/19 05:21 Dose: 800 mg Oxycodone HCl (Oxycodone) 5 mg PO Q2H PRN PRN Reason: Pain Witch Xenia (Tucks) 1 pad TOP ASDIRECTED PRN PRN Reason: comfort care Discontinued Medications Butorphanol Tartrate (Stadol) 1 mg IVPUSH Q1H PRN PRN Reason: Pain Last Admin: 07/26/19 11:26 Dose: 1 mg Carboprost Tromethamine (Hemabate Ds) 250 mcg IM ASDIRECTED PRN PRN Reason: Post Hemorrhage Lactated Ringer's (Ringers, Lactated) 1,000 mls @ 150 mls/hr IV ASDIRECTED SAIRA Last Admin: 07/26/19 10:45 Dose: 500 mls/hr Oxytocin/Sodium Chloride (Oxytocin 30 Unit/500 Ml-Ns) 30 unit in 500 mls @ 500 mls/hr IV TITRATE SAIRA Last Admin: 07/26/19 12:05 Dose: 500 mls/hr Tranexamic Acid 1,000 mg/ (Sodium Chloride) 110 mls @ 660 mls/hr IV ONETIME PRN PRN Reason: Bleeding Oxytocin/Sodium Chloride (Oxytocin 30 Unit/500 Ml-Ns) 30 unit in 500 mls @ 2 mls/hr IV TITRATE SAIRA; Protocol Last Titration: 07/26/19 10:22 Dose: 0 munits/min, 0 mls/hr Lidocaine HCl (Xylocaine 1%) 50 ml INJECT ONETIME PRN PRN Reason: Laceration repair Methylergonovine Maleate (Methergine) 0.2 mg IM ASDIRECTED PRN PRN Reason: Post Hemorrhage Misoprostol (Cytotec) 200 mcg PO ONETIME PRN PRN Reason: Post Hemorrhage Nalbuphine HCl (Nubain) 10 mg IVPUSH Q1H PRN PRN Reason: Pain (severe 7-10) Sodium Chloride (Saline Flush) 10 ml FLUSH ASDIRECTED PRN PRN Reason: Keep Vein Open Sodium Chloride (Saline Flush) 2.5 ml FLUSH ASDIRECTED PRN PRN Reason: Keep Vein Open Sodium Chloride (Normal Saline) 10 ml IV ASDIRECTED PRN PRN Reason: IV Use Sterile Water (Sterile Water For Irrigation) 1,000 ml IRR ASDIRECTED PRN PRN Reason: delivery Terbutaline Sulfate (Brethine) 0.25 mg SUBCUT ASDIRECTED PRN PRN Reason: Tacysystole - Infant Interaction Infant Disposition, : in Room with Family Interaction: Unable to Hold Infant at this Time Feeding: Attempted ; Nursed Fair/Poor Support Person: - Recovery Exam Fundal Tone: Firm Fundal Level: 1 Fingerbreadths Below Umbilicus Fundal Placement: Midline Lochia Amount: Scant Lochia Color: Rubra/Red Perineum Description: Intact, Minimal Bruising/Swelling Episiotomy/Laceration: None Bladder Status: Voiding Urinary Elimination: Voided - Exam General: Alert Neck: Supple Lungs: Clear to Auscultation, Normal Respiratory Effort Cardiovascular: Regular Rate, Regular Rhythm GI/Abdominal Exam: Soft, Non-Tender, No Distention Extremities: Non-Tender, No Pedal Edema Skin: Warm, Dry, Intact Neurological: No New Focal Deficit - Problem List & Annotations (1) Gestational diabetes mellitus (GDM) requiring insulin SNOMED Code(s): 66702398, 503499162 Code(s): O24.414 - GESTATIONAL DIABETES IN , INSULIN CONTROLLED Status: Acute Current Visit: Yes (2) Gestational hypertension SNOMED Code(s): 128320909 Code(s): O13.9 - GESTATIONAL HTN W/O SIGNIFICANT PROTEINURIA, UNSP TRIMESTER Status: Acute Current Visit: Yes (3) Single umbilical artery SNOMED Code(s): 995095529 Code(s): Q27.0 - CONGENITAL ABSENCE AND HYPOPLASIA OF UMBILICAL ARTERY Status: Acute Current Visit: Yes (4) Vaginal delivery SNOMED Code(s): 780653627 Code(s): O80 - ENCOUNTER FOR FULL-TERM UNCOMPLICATED DELIVERY Status: Acute Current Visit: Yes - Problem List Review Problem List Initiated/Reviewed/Updated: Yes - My Orders Last 24 Hours: My Active Orders 07/26/19 12:45 Acetaminophen [Tylenol Extra Strength] 1,000 mg PO Q4H PRN Acetaminophen [Tylenol Extra Strength] 500 mg PO Q4H PRN Benzocaine/Menthol [Dermoplast Pain Relief 20%-0.5% Hiko] 78 gm TOP ASDIRECTED PRN Docusate Sodium [Colace] 100 mg PO BID PRN Ibuprofen [Motrin] 400 mg PO Q4H PRN Ibuprofen [Motrin] 800 mg PO Q6H PRN Lanolin [Lansinoh HPA] See Dose Instructions TOP ASDIRECTED PRN Tranexamic Acid [Cyklokapron] 1,000 mg Sodium Chloride 0.9% [Normal Saline] 100 ml IV ONETIME bisacodyL [Dulcolax] 10 mg RECTAL ONETIME PRN oxyCODONE 5 mg PO Q2H PRN witch Xenia [Tucks] 1 pad TOP ASDIRECTED PRN Resuscitation Status Routine 07/26/19 12:46 Patient Status [ADT] Routine May Shower [RC] ASDIRECTED Up ad Lori [RC] ASDIRECTED Vital Signs [RC] PER UNIT ROUTINE Assess Lochia [WOMSER] Per Unit Routine Assess Uterine Involution [WOMSER] Per Unit Routine Perineal Care [OM.PC] Per Unit Routine Peripheral IV Discontinue [OM.PC] Routine 07/26/19 Lunch Regular Diet [DIET] 07/27/19 09:13 Ready for Discharge [RC] PER UNIT ROUTINE - Assessment Assessment:: PPD#1 after , gestational diabetes, mild gestational hypertension, improved after delivery. Baby is on IV at this time for glucose control,, but if baby is stable for discharge later today, patient would like to be discharged home. Normal fasting glucose this am. - Plan Plan:: Discharge instructions reviewed. She may discontinue glucose monitoring, and get 2 hour GTT at 6 weeks .
== END 2019-07-27 16:20 | disposition home or self-care (01) | DRG 807 ==
LOC: MW.OBCHECK 05:06 → MW.OB 05:08 → OBSVTOIN 11:41 → MW.OB 11:41
PROVIDERS: ADMIT Obstetrics & Gynecology; ATTEND Obstetrics & Gynecology
PROC: 10E0XZZ Delivery of Products of Conception, External Approach (ICD-10-PCS; principal; 2019-07-26)
PROC: 10907ZC Drainage of Amniotic Fluid, Therapeutic from Products of Conception, Via Natural or Artificial Opening (ICD-10-PCS; 2019-07-26)
PROC: 3E033VJ Introduction of Other Hormone into Peripheral Vein, Percutaneous Approach (ICD-10-PCS; 2019-07-26)
DX: O13.4 Gestational [pregnancy-induced] hypertension without significant proteinuria, complicating childbirth (principal); Z37.0 Single live birth; Z3A.38 38 weeks gestation of pregnancy; O24.424 Gestational diabetes mellitus in childbirth, insulin controlled; O40.3XX0 Polyhydramnios, third trimester, not applicable or unspecified
CPT/HCPCS: 36415; 59025; 59409; 80048; 82803; 82962; 85014; 85018; 85027; 86592; 86593; 86850; 86900; 86901; 88307; A9270-GY; J0595; J2590; J7120